=== PATIENT | female | born 1985 | race Hispanic/Latino ===

== ENCOUNTER 2020-01-19 10:04 | Day surgery (SDC) | payer OTHER ==
[2020-01-19] VITALS (11 sets, daily range): BP systolic 111–150; BP diastolic 67–92
[~2020-01-19 10:04] MED LIST: SODIUM CHLORIDE 0.9% 1000ML 1,000 ML IV ONE; SODIUM CHLORIDE 0.9% 500ML 0 ML IV ONE
[2020-01-19] MEDS ORDERED: PROPOFOL 10 MG/ML 20ML VIAL IV ONE (12:30)
== END 2020-01-19 13:45 | disposition home or self-care (01) ==
LOC: ENDO 10:04 → DAH 10:04 → ENDO 13:45
PROVIDERS: ATTEND Surgery
DX: K21.9 Gastro-esophageal reflux disease without esophagitis (principal)
CPT/HCPCS: 36415; 43235; 84703; A4215; A4221; A4222; A4223; A4606; A4620; A4657; A4663; J2704; J7030; J7040

== ENCOUNTER 2023-09-07 22:57 | Emergency (ER) | payer OTHER ==
[~2023-09-07] VITALS: Ht 165.1 cm; Wt 147.4 kg
[2023-09-07 23:16] LABS: RAPID GROUP A STREP negative (NEGATIVE)
[2023-09-07 23:22] LABS: SARS-CoV-2, RNA, NAAT NEGATIVE SARS CoV-2 (NEGATIVE)
[2023-09-07 23:26] LABS: INFLUENZA TYPE A Negative For Type A (NEGATIVE); INFLUENZA TYPE B Negative For Type B (NEGATIVE)
[2023-09-08] MEDS ORDERED: BROM118S48 PO (00:43)
[2023-09-08] MEDS ORDERED: BENZ200C53 PO (00:43)
[2023-09-08] MEDS ORDERED: IBUP-2070 PO (00:43)
[2023-09-08 00:54] VITALS: BP 121/70; PULSE 84; RESP 14; O2SAT 97
== END 2023-09-08 01:04 | disposition home or self-care (01) ==
LOC: EDH 22:57
DX: J00 Acute nasopharyngitis [common cold] (principal); I10 Essential (primary) hypertension; Z20.822 Contact with and (suspected) exposure to COVID-19
CPT/HCPCS: 99283; 87635; 87880; 87804 ×2; C9803